=== PATIENT | female | born 1945 | race Caucasian/White ===

== ENCOUNTER 2017-07-13 13:47 | Inpatient (IN) | payer MEDICARE, OTHER ==
[~2017-07-13] VITALS: Ht 154.9 cm; Wt 81.7 kg
--- NOTE | ~2017-07-13 | CN ---
Consultation Report [address]. [address] NAME: ROSALBA LINO : 49 STATUS : ADM IN [facility]#: [id number] AGE: 71 ADM/REG DATE : 07/13/17 MR#: [id number] REPORT SERV DATE: 07/14/17 DICTATED BY: ELKIN KELLEY III DATE: 07/14/17 REPORT STATUS : Draft TRANSCRIBED BY: MODL DATE: 07/14/17 DATE OF CONSULTATION: REASON: Bilateral hydronephrosis. HISTORY OF PRESENT ILLNESS: Ms. Lino is a 71-year-old white female, admitted to the hospital with diarrhea and colitis. She has a history of pancreatic cancer and has had a Whipple procedure as well as radiation and chemotherapy at [place]. On admission, the ultrasound suggested bilateral hydronephrosis. She then had a noncontrasted CT scan, which was interpreted as bilateral hydronephrosis. She has no complaints of flank pain. Her renal function is normal. PAST MEDICAL HISTORY: Pancreatic cancer, possible diabetes, hypertension, history of DVT. SURGICAL HISTORY: Whipple surgery, surgery for diverticulitis, cholecystectomy, tubal ligation, tonsillectomy. SOCIAL HISTORY: The patient lives by herself. ALLERGIES: SHE IS ALLERGIC TO MORPHINE. MEDICATIONS: She is on Lotrel, Lipitor, gabapentin, hydrochlorothiazide, Zantac, and trazodone. PHYSICAL EXAMINATION: GENERAL: The patient is awake and comfortable. She is alert. ABDOMEN: Soft. She has surgical incisions which are well healed. LABORATORY DATA: BUN is 11, creatinine 0.91. ASSESSMENT: Bilateral hydronephrosis versus bilateral peripelvic cyst. PLAN: We will try to obtain her studies from [place]. She believed or need a contrasted study in the future versus a cystoscopy and retrograde study. She is in room 411. PH/MODL Elkin Kelley III, M.D. / [id number] CC: Consultation Report [address]. [address] NAME: ROSALBA LINO : 49 STATUS : ADM IN PAT#: [id number] AGE: 71 ADM/REG DATE : 07/13/17 MR#: [id number] REPORT SERV DATE: 07/14/17 DICTATED BY: ELKIN KELLEY III DATE: 07/14/17 REPORT STATUS : Draft TRANSCRIBED BY: MODL DATE: 07/14/17 Jed Avila M.D.
--- NOTE | ~2017-07-13 | DS ---
Discharge Summary [facility] [address] [place]. [address] NAME: ROSALBA LINO : 49 STATUS : DIS IN PAT#: [id number] AGE: 71 ADM/REG DATE : 07/13/17 MR#: [id number] REPORT SERV DATE: 07/16/17 DICTATED BY: JETT KWAN DATE: 07/16/17 REPORT STATUS : Draft TRANSCRIBED BY: MODL DATE: 07/16/17 ADMISSION DATE: 07/13/2017 DISCHARGE DATE: 07/16/2017 DISCHARGE DIAGNOSES: 1. Sigmoid colitis, currently resolved. 2. History of pancreatic cancer, status post chemo, radiation, and then resection with negative nodes. 3. Bilateral pelvic cysts of the kidneys but otherwise no evidence of hydronephrosis. 4. Hypertension. 5. Hyperlipidemia. 6. History of deep vein thrombosis in the past. No current anticoagulation at this time. 7. Possibility of diabetes. BRIEF HISTORY OF PRESENT ILLNESS: The patient is a 71-year-old white female, who presented with abdominal pain, diarrhea for two to three days, so she was admitted. For detailed history and physical exam, please see note dictated by Dr. Dalila Chang on 07/13/2017. CONSULTANTS DURING THIS HOSPITALIZATION: Dr. Elkin Batista of Nephrology. INVASIVE PROCEDURES DONE DURING THIS HOSPITALIZATION: None. HOSPITAL COURSE: After being admitted to the hospital, this patient underwent a CT scan which was noncontrasted because of patient's IV dye allergy. This patient showed sigmoid diverticulitis. We did mesenteric ultrasound to further rule out any ischemic colitis and Doppler's were negative. On the CT scan, there was a possibility that the patient had bilateral mild hydronephrosis. I asked Dr. Batista to see the patient. Dr. Batista ordered an IVP, which was completely normal without evidence of any ureteral obstruction and possibility of pelvic cyst, which were noted to be hydronephrotic, but no true hydronephrosis. This patient has done well with IV Flagyl. We switched to oral Flagyl, and now, she is tolerating a diet. Her diarrhea has abated. She did have some increased flatus but that seems to be her norm. She is well enough that she wants to go home and recover in the home setting. DISCHARGE DISPOSITION: Home. DISCHARGE ACTIVITY: As tolerated. DISCHARGE DIET: Low residue diet. DISCHARGE MEDICATIONS: Flagyl 500 mg p.o. t.i.d. for five more days, Lotrel 10/40 one capsule daily, Lipitor 40 mg p.o. once at bedtime, Neurontin 300 mg twice daily, trazodone 150 mg once at bedtime, Zantac 300 mg once daily, HydroDIURIL 25 mg p.o. daily. DISCHARGE FOLLOWUP: With Dr. Zamora as previously scheduled, with Dr. Araceli Ye as needed. Discharge Summary [address] [address] NAME: ROSALBA LINO : 49 STATUS : DIS IN PAT#: [id number] AGE: 71 ADM/REG DATE : 07/13/17 MR#: [id number] REPORT SERV DATE: 07/16/17 DICTATED BY: JETT KWAN DATE: 07/16/17 REPORT STATUS : Draft TRANSCRIBED BY: JHONNY DATE: 07/16/17 More than 30 minutes spent planning this patient's discharge, reconciling medications, writing prescriptions, discussing hospital care, and followup with the patient and documenting this discharge. SURJIT/JHONNY Jett Kwan M.D. / [id number] CC: Jed Avila M.D. John McCravey, M.D.
--- NOTE | ~2017-07-13 | HP ---
History And Physical [address] [place]. [address] NAME: ROSALBA LINO : 49 STATUS : ADM IN [facility]#: [id number] AGE: 71 ADM/REG DATE : 07/13/17 MR#: [id number] REPORT SERV DATE: 07/14/17 DICTATED BY: DALILA COELHO DATE: 07/13/17 REPORT STATUS : Draft TRANSCRIBED BY: MODBharat DATE: 07/13/17 DATE OF ADMISSION: 07/13/2017 CHIEF COMPLAINT: Diarrhea. HISTORY OF PRESENT ILLNESS: A 71-year-old white female with history of pancreatic cancer comes in complaining of diarrhea. She has had diarrhea for the past several days described as at least eight times daily. It slowed up a little in the past several days. It has only been six to seven times a day. Diarrhea has been brown and mucoid. She has had no fever. She has had some abdominal pain and cramping. She has been on Levaquin for bronchitis. The patient has a history of pancreatic cancer diagnosed in 04/2016 that was treated with radiation and surgery. She has also been on chemotherapy, last chemotherapy was five weeks ago. Her oncologist is Dr. Zamora. She has not had a followup CT scan since her surgery and radiation. She went to [facility] last night, but left without being seen after four and half hours. PAST MEDICAL HISTORY: 1. Pancreatic cancer as above. 2. Possible diabetes. 3. Hypertension. 4. The patient also had a DVT associated with a removed Mediport, associated with also sepsis. PAST SURGICAL HISTORY: Pancreatic surgery including resection also of her spleen, colon surgery for diverticulitis, cholecystectomy, bilateral tubal ligation, tonsillectomy. SOCIAL HISTORY: She does not smoke or drink. Lives by herself, but family is close by. Still drives. She is a full code. FAMILY HISTORY: Both mom and dad of a CVA. ALLERGIES: THE PATIENT IS ALLERGIC TO MORPHINE, CAUSES HALLUCINATIONS. MEDICATIONS: The patient is currently on Lotrel 10/40 one at bedtime, Lipitor 40 mg at bedtime, gabapentin 300 mg b.i.d., hydrochlorothiazide 25 mg daily, Zantac 300 mg daily, trazodone 150 mg at bedtime. REVIEW OF SYSTEMS: CONSTITUTIONAL: Denies fevers, sweats, or rigors. EYES: No blurred or double vision, vision loss, or glaucoma. HEENT: No headache, hearing loss, or tinnitus. CARDIOVASCULAR: No chest pain, palpitations, or syncope. RESPIRATORY: No cough, wheezing, or pleuritic pain. GASTROINTESTINAL: No nausea or vomiting. No hematemesis. She has had abdominal pain as in HPI. She has had some diarrhea. No melena or hematochezia. MUSCULOSKELETAL: No arthralgia, arthritis, or back pain. History And Physical [address] [address] NAME: ROSALBA LINO : 49 STATUS : ADM IN [facility]#: [id number] AGE: 71 ADM/REG DATE : 07/13/17 MR#: [id number] REPORT SERV DATE: 07/14/17 DICTATED BY: DALILA COELHO DATE: 07/13/17 REPORT STATUS : Draft TRANSCRIBED BY: JHONNY DATE: 07/13/17 INTEGUMENT: No rash or suspicious skin lesions. NEUROLOGIC: No memory loss, gait disturbance, or weakness. HEMATOLOGIC: No anemia, iron deficiency, or B12 deficiency. PSYCHIATRIC: No depression, bipolar, or anxiety. : No dysuria, hematuria, or nephrolithiasis. ENDOCRINE: Possible history of diabetes. No thyroid disease. Does have a history of increased cholesterol. PHYSICAL EXAMINATION: VITAL SIGNS: Blood pressure is 168/84, temperature 98.9, pulse 98, respirations 16, and O2 saturation 96% on room air. CONSTITUTIONAL: Alert and appropriate. PSYCHIATRIC: Oriented x3. Memory intact. Affect appropriate. HEENT: Atraumatic and normocephalic. Oral palate without lesion. Eyes: Pupils reactive, anicteric. NECK: No adenopathy. Supple. No thyromegaly or masses. RESPIRATORY: Clear to auscultation. Decreased breath sounds at bases. CARDIOVASCULAR: Regular rate and rhythm. No audible murmurs. No carotid or femoral bruits. Distal pulse intact. ABDOMEN: She has moderate diffuse tenderness. No obvious hepatosplenomegaly. She has a midline scar. SKIN: No rash. No suspicious lesions. NEUROLOGIC: The patient moves all four extremities. Cranial nerves II through XII intact. LYMPHATIC: No adenopathy in the neck, axilla, or femoral region. MUSCULOSKELETAL: Range of motion intact in upper and lower extremities. LABORATORY DATA: CT of the abdomen and pelvis reveals bilateral hydro, bilateral pleural fluid, and adjacent atelectasis, sigmoid colon wall thickening, inflammation of adjacent fat, possible colitis, sigmoid colon anastomosis, hepatic cyst. Also, white blood cell count is 14.6, hemoglobin 11.4, and platelet is 591. Sodium 141, potassium 3.9, BUN 11, creatinine 0.91. Lipase is normal. Urinalysis: No white cells per high-power field. IMPRESSION/PLAN: 1. Colitis. We will empirically place the patient on Rocephin and IV Flagyl with oral vancomycin, suspect Clostridium difficile colitis. We will plan to discontinue Rocephin if Clostridium difficile is positive. 2. Pancreatic cancer. 3. Bilateral hydronephrosis. We will obtain renal ultrasound in a.m. We will also check bladder scan to check bladder volume. 4. Hypertension. We will hold JUICE inhibitor now because of bilateral hydronephrosis. We will continue Norvasc. 5. Abdominal pain. We will control with pain medications. 6. History of deep vein thrombosis associated with line. We will use DVT prophylaxis with Lovenox. History And Physical [address] [address] NAME: ROSALBA LINO : 49 STATUS : ADM IN [facility]#: [id number] AGE: 71 ADM/REG DATE : 07/13/17 MR#: [id number] REPORT SERV DATE: 07/14/17 DICTATED BY: DALILA COELHO DATE: 07/13/17 REPORT STATUS : Draft TRANSCRIBED BY: JHONNY DATE: 07/13/17 TAHIR/JHONNY Dalila Coelho MD / [id number] CC: Jed Orona M.D. John McCravey, M.D.
[~2017-07-13 13:47] MED LIST: ASAB PO; CALTRA600D PO; FISH OIL1200 MG PO; FISH-EPA1000 MG PO; FLONASE NAS; HCTZ25B PO; HYDROCHLOROT25 MG PO; IBU-200200 MG PO; LIPITOR20 PO; LOTREL1 CA2 PO; LOTREL1 CA5 PO; METPAKSF PO; MULTIPLE VIT PO; NIACIN 500 PO; TRAZODONE150 MG PO; VITAMIN B-122500 MCG SL; VITAMIN D31000 UNIT PO; ZYRTEC ALLGY10 MG PO
[2017-07-13 15:42] LABS: BASOPHILS 0.4 %; BASOPHILS ABSOLUTE 0.06 10/3/uL (0.0-0.16); EOSINOPHILS ABSOLUTE 0.15 10/3/uL (0.0-0.53); ER CBC TAT 0 Hrs 14 Mins; HEMATOCRIT 34.6 % (36.0-48.0); HEMOGLOBIN 11.4 g/dL (12.0-16.0); IMMATURE GRANULOCYTES 0.4 %; IMMATURE GRANULOCYTES ABSOLUTE 0.06 10/3/uL (0.0-0.11); LYMPHOCYTES 5.8 %; LYMPHOCYTES ABSOLUTE 0.85 10/3/uL (0.67-4.30); MANUAL DIFF NO %; MEAN CORPUS HGB CONC 32.9 g/dL (32.0-36.0); MEAN CORPUSCULAR HEMOGLOB 32.3 pg (26.0-34.0); MEAN PLATELET VOLUME 11.5 fL (9.2-13.0); MONOCYTES 18.5 %; MONOCYTES ABSOLUTE 2.69 10/3/uL (0.21-1.20); NEUTROPHILS 73.9 %; NEUTROPHILS ABSOLUTE 10.74 10/3/uL (2.02-8.40); PLATELET COUNT 591 10/3/uL (150-400); RBC DISTRIBUTION WIDTH 19.2 % (12.0-16.0); RED CELL COUNT 3.53 10/6/uL (4.0-5.6); WHITE BLOOD CELLS 14.6 10/3/uL (4.5-10.5)
[2017-07-13 15:55] LABS: A/G RATIO 0.8 (0.7-1.9); ALBUMIN 3.2 G/DL (3.5-5.0); ALKALINE PHOSPHATASE 94 U/L (45-117); CALCIUM, SERUM 8.7 MG/DL (8.5-10.4); CHLORIDE, SERUM 105 MMOL/L (96-112); CO2 (CARBON DIOXIDE) 27 MMOL/L (24-34); CREATININE 0.91 MG/DL (0.55-1.02); GFR AFRICAN AMERICAN 75 ML/MIN (>=60); GFR NON AFRICAN AMERICAN 64 ML/MIN (>=60); GLUCOSE, SERUM 100 MG/DL (60-99); POTASSIUM, SERUM 3.9 MMOL/L (3.5-5.3); SGOT(AST) 37 U/L (5-40); SGPT(ALT) 24 U/L (5-65); SODIUM, SERUM 141 MMOL/L (135-148); TOTAL BILIRUBIN 0.7 MG/DL (0-1.2)
[2017-07-13 15:56] LABS: BUN (BLOOD UREA NITROGEN) 11 MG/DL (6-23); GLOBULIN 3.8 G/DL (2.5-4.1)
[2017-07-13 16:08] LABS: ANISOCYTOSIS 1+ (5-10/OIF) (0-5/OIF); BAND NEUTROPHILS 1 %; EOSINOPHILS 2 %; EOSINOPHILS ABSOLUTE (CALC) 0.29 10/3/uL (0.0-0.53); ER DIFF TAT 0 Hrs 40 Mins; LYMPHOCYTES 6 %; LYMPHOCYTES ABSOLUTE (CALC) 0.88 10/3/uL (0.67-4.30); MONOCYTES 23 %; MONOCYTES ABSOLUTE (CALC) 3.36 10/3/uL (0.21-1.20); NEUTROPHILS ABSOLUTE (CALC) 10.07 10/3/uL (2.02-8.40); PLATELET ESTIMATE SLT INC (ADEQUATE); SEGMENTED NEUTROPHIL (0) 68 %; TOTAL NUCLEATED CELLS 100
[2017-07-13 16:09] LABS: HELMET CELLS FEW (3-10/OIF); MACROCYTES 1+ (5-10/OIF) (0-5/OIF)
[2017-07-13 16:10] LABS: ACANTHOCYTES FEW (3-10/OIF)
[2017-07-13 17:42] LABS: WBC (NOT ORDERED) (RFLEX) 0 (0-5)
[2017-07-13 17:49] LABS: ASCORBIC ACID (UR NOT ORDER) NEG (NEG); BILIRUBIN, URINE NEGATIVE (NEG); ER URINALYSIS TAT 0 Hrs 08 Mins; KETONE, URINE TRACE MG/DL (NEG); LEUKOCYTE ESTERASE(NOT OR NEG (NEG); NITRITE (URINE) NEG (NEG)
[2017-07-13] MEDS ORDERED: ZANTAC300 MG PO (18:02)
[2017-07-13] MEDS ORDERED: TRAZODONE150 MG PO (18:02)
[2017-07-13] MEDS ORDERED: LIPITOR40 PO (18:03)
[2017-07-13] MEDS ORDERED: LOTREL1 CA5 PO (18:03)
[2017-07-13] MEDS ORDERED: NEUR300 PO (18:04)
[2017-07-13] MEDS ORDERED: HCTZ25B PO (18:05)
[2017-07-13 21:04] LABS: LACTATE 0.9 MMOL/L (0.3-2.4)
[2017-07-14 06:17] LABS: HEMATOCRIT 28.2 % (36.0-48.0); HEMOGLOBIN 9.3 g/dL (12.0-16.0); MANUAL DIFF YES %; MEAN CORPUSCULAR HEMOGLOB 32.6 pg (26.0-34.0); MEAN CORPUSCULAR VOLUME 98.9 fL (80-100); MEAN PLATELET VOLUME 11.4 fL (9.2-13.0); PLATELET COUNT 484 10/3/uL (150-400); RBC DISTRIBUTION WIDTH 19.3 % (12.0-16.0); RED CELL COUNT 2.85 10/6/uL (4.0-5.6); WHITE BLOOD CELLS 11.5 10/3/uL (4.5-10.5)
[2017-07-14 06:33] LABS: A/G RATIO 0.9 (0.7-1.9); ALBUMIN 2.5 G/DL (3.5-5.0); ALKALINE PHOSPHATASE 69 U/L (45-117); BUN (BLOOD UREA NITROGEN) 11 MG/DL (6-23); CALCIUM, SERUM 8.1 MG/DL (8.5-10.4); CHLORIDE, SERUM 105 MMOL/L (96-112); CO2 (CARBON DIOXIDE) 27 MMOL/L (24-34); CREATININE 0.78 MG/DL (0.55-1.02); GFR AFRICAN AMERICAN 90 ML/MIN (>=60); GFR NON AFRICAN AMERICAN 78 ML/MIN (>=60); GLOBULIN 2.9 G/DL (2.5-4.1); GLUCOSE, SERUM 88 MG/DL (60-99); SGOT(AST) 26 U/L (5-40); SGPT(ALT) 17 U/L (5-65); SODIUM, SERUM 140 MMOL/L (135-148); TOTAL BILIRUBIN 0.3 MG/DL (0-1.2); TOTAL PROTEIN 5.4 G/DL (6.0-8.5)
[2017-07-14 06:38] LABS: ANISOCYTOSIS 1+ (5-10/OIF) (0-5/OIF); BAND NEUTROPHILS 3 %; BASOPHILS 1 %; BASOPHILS ABSOLUTE (CALC) 0.12 10/3/uL (0.0-0.16); EOSINOPHILS 6 %; EOSINOPHILS ABSOLUTE (CALC) 0.69 10/3/uL (0.0-0.53); LYMPHOCYTES 4 %; LYMPHOCYTES ABSOLUTE (CALC) 0.46 10/3/uL (0.67-4.30); MONOCYTES 16 %; MONOCYTES ABSOLUTE (CALC) 1.84 10/3/uL (0.21-1.20); PLATELET ESTIMATE SLT INC (ADEQUATE); SEGMENTED NEUTROPHIL (0) 70 %; TOTAL NUCLEATED CELLS 100
[2017-07-14 06:39] LABS: POIKILOCYTOSIS 1+ (5-10/OIF) (0-5/OIF); POLYCHROMASIA 1+ (2-5/OIF) (0-1/OIF); SCHISTOCYTES OCC (0-2/OIF)
[2017-07-15 06:35] LABS: HEMATOCRIT 29.7 % (36.0-48.0); HEMOGLOBIN 9.8 g/dL (12.0-16.0); MEAN CORPUSCULAR HEMOGLOB 32.2 pg (26.0-34.0); MEAN CORPUSCULAR VOLUME 97.7 fL (80-100); PLATELET COUNT 487 10/3/uL (150-400); RBC DISTRIBUTION WIDTH 19.2 % (12.0-16.0); RED CELL COUNT 3.04 10/6/uL (4.0-5.6); WHITE BLOOD CELLS 9.3 10/3/uL (4.5-10.5)
[2017-07-15 06:36] LABS: MANUAL DIFF YES %
[2017-07-15 06:49] LABS: ALBUMIN 2.5 G/DL (3.5-5.0); BUN (BLOOD UREA NITROGEN) 10 MG/DL (6-23); CALCIUM, SERUM 8.2 MG/DL (8.5-10.4); CHLORIDE, SERUM 107 MMOL/L (96-112); CO2 (CARBON DIOXIDE) 25 MMOL/L (24-34); CREATININE 0.75 MG/DL (0.55-1.02); GFR AFRICAN AMERICAN 94 ML/MIN (>=60); GFR NON AFRICAN AMERICAN 81 ML/MIN (>=60); GLUCOSE, SERUM 90 MG/DL (60-99); POTASSIUM, SERUM 4.2 MMOL/L (3.5-5.3); SODIUM, SERUM 139 MMOL/L (135-148)
[2017-07-15 07:07] LABS: BAND NEUTROPHILS 2 %; BASOPHILS 1 %; BASOPHILS ABSOLUTE (CALC) 0.09 10/3/uL (0.0-0.16); EOSINOPHILS 14 %; LYMPHOCYTES 3 %; LYMPHOCYTES ABSOLUTE (CALC) 0.28 10/3/uL (0.67-4.30); MONOCYTES 22 %; MONOCYTES ABSOLUTE (CALC) 2.05 10/3/uL (0.21-1.20); NEUTROPHILS ABSOLUTE (CALC) 5.58 10/3/uL (2.02-8.40); SEGMENTED NEUTROPHIL (0) 58 %; TOTAL NUCLEATED CELLS 100
[2017-07-15 07:08] LABS: ANISOCYTOSIS 1+ (5-10/OIF) (0-5/OIF); BURR CELLS 1+ (3-10/OIF) (0-2/OIF); MACROCYTES 1+ (5-10/OIF) (0-5/OIF); PLATELET ESTIMATE SLT INC (ADEQUATE)
[2017-07-15 07:09] LABS: HELMET CELLS FEW (3-10/OIF); SCHISTOCYTES FEW (3-10/OIF)
[2017-07-16] MEDS ORDERED: FLAG500TAB PO (13:04)
== END 2017-07-16 16:05 | disposition home or self-care (01) | DRG 392 ==
LOC: ER 13:47 → 4SO 20:20
PROVIDERS: Emergency Medicine; Internal Medicine; Nurse Practitioner Family
DX: K52.89 Other specified noninfective gastroenteritis and colitis (principal); C25.9 Malignant neoplasm of pancreas, unspecified; N28.1 Cyst of kidney, acquired; I10 Essential (primary) hypertension; Z86.718 Personal history of other venous thrombosis and embolism; Z79.01 Long term (current) use of anticoagulants; E78.5 Hyperlipidemia, unspecified; J42 Unspecified chronic bronchitis; Z90.81 Acquired absence of spleen; E11.9 Type 2 diabetes mellitus without complications
CPT/HCPCS: 74176; 74400; 76775; 80053; 80069; 81001; 83036; 83605; 83690; 83735; 84145; 85025; 87040; 87493; 87493-59; 93975; 94640; 96374; 96375; 99285; A9270-GY; J0360; J1170; J2405; Q9967